=== PATIENT | female | born 1990 | race African-American/Black ===

== ENCOUNTER 2021-04-22 10:48 | Inpatient (IN) ==
[2021-04-22] MEDS ORDERED: OXYTOCIN/LR 20 UNIT/1,000 ML BAG IV ONE ×3 (10:50→14:29)
[2021-04-22] MEDS ORDERED: miSOPROStoL 200 MCG TABLET ONE (10:50)
[2021-04-22] MEDS ORDERED: TRANEXAMIC ACID 1,000 MG/10 ML VIAL ONE (10:50)
[2021-04-22] MEDS ORDERED: CARBOPROST TROMETHAMINE 250 MCG/ML AMP IM ONE (10:51)
[2021-04-22] MEDS ORDERED: METHYLERGONOVINE 0.2 MG/1 ML AMP ONE (10:51)
[2021-04-22] MEDS ORDERED: MEPERIDINE 50 MG/1 ML VIAL ONE (10:53)
[2021-04-22] MEDS ORDERED: LIDOCAINE 2% 20 ML VIAL ONE (10:53)
[2021-04-22] MEDS ORDERED: AMPICILLIN 2,000 MG VIAL ONE ×2 (10:54→11:04)
[2021-04-22] MEDS ORDERED: SODIUM CHLORIDE 0.9% 0 ML IV ONE (10:55)
[2021-04-22] MEDS ORDERED: ONDANSETRON 4 MG/2 ML VIAL IV PRN ×2 (10:57→11:44)
[2021-04-22] MEDS ORDERED: MEPERIDINE 50 MG/1 ML VIAL IV PRN (10:57)
[2021-04-22] MEDS ORDERED: LIDOCAINE 2% 20 ML VIAL MISC INJ ONE (10:59)
[2021-04-22] MEDS ORDERED: SODIUM CHLORIDE 0.9% 100 ML IV ONE (11:05)
[2021-04-22] MEDS ORDERED: AMPICILLIN INJ 2,000 MG in SODIUM CHLORIDE 0.9% 100 ML IV ONE (11:10)
[2021-04-22] MEDS: LACTATED RINGERS 1,000 ML IV SCH ×2 (11:12→18:49)
[2021-04-22] MEDS ORDERED: DIPH/TET/ACEL PERT BOOSTER VACCINE 0.5 ML VIAL IM ONE (11:44)
[2021-04-22] MEDS ORDERED: BISACODYL 10 MG SUPP RECTAL PRN (11:44)
[2021-04-22] MEDS ORDERED: BENZOCAINE 20%/MENTHOL 0.5% SPRAY 56 GM CAN TOP PRN (11:44)
[2021-04-22] MEDS ORDERED: LANOLIN 50% CREAM 0.3 OZ TUBE TOP PRN (11:44)
[2021-04-22] MEDS ORDERED: ACETAMINOPHEN 325 MG TABLET PO PRN (11:44)
[2021-04-22] MEDS ORDERED: WITCH HAZEL PADS 100/JAR TOP PRN (11:44)
[2021-04-22] MEDS ORDERED: RHO(D) IMMUNE GLOBULIN 300 MCG SYRINGE IM ONE (11:44)
[2021-04-22] MEDS ORDERED: MEASLES/MUMPS/RUBELLA VACCINE 0.5 ML VIAL SUBCUT ONE (11:44)
[2021-04-22] MEDS ORDERED: HYDROCORTISONE 2.5% RECTAL CREAM 30 GM TUBE TOP PRN (11:44)
[2021-04-22 11:46] LABS: Cord Arterial Blood HCO3 23.8 MMOL/L
[2021-04-22 11:48] LABS: Cord Venous Blood HCO3 21.3 MMOL/L; Cord Venous Blood PCO2 26.9 MMHG; Cord Venous Blood PO2 28.7 MMHG
[2021-04-22 12:21] LABS: Basophils % 0.1 % (0.0-0.8); Hematocrit 34.1 VOL% (35.7-47.0); Immature Granulocytes % 0.5 %; Immature Granulocytes Absolute 0.06 #; Lymphocytes # 0.9 10*3/uL (1.4-4.0); Lymphocytes % 7.8 % (21.3-54.2); Mean Corpuscular HGB Conc 32.3 GM/DL (32-36); Mean Corpuscular Volume 92.2 FL (87-102); Mean Platelet Volume 10.1 FL (9.6-12.0); Monocytes % 7.2 % (1.7-12.7); Neutrophils % 84.4 % (38.7-73.9); Platelet Count 187 T/CUMM (130-400); Red Cell Distribution Width 13.7 % (9.3-17.3); White Blood Count 10.9 T/CUMM (4-12)
[2021-04-22 12:30] LABS: Albumin 2.7 G/DL (3.4-5.0); Bilirubin,Total 0.4 MG/DL (0.2-1.0); Calcium 8.4 MG/DL (8.5-10.1); Osmolality,Calculated 275.5 MOS/KG (273-304); Potassium 3.2 MMOL/L (3.5-5.1); Total Protein 6.6 G/DL (6.4-8.2)
[2021-04-22] MEDS: IBUPROFEN 800 MG TABLET PO PRN ×2 (14:27→20:45)
[2021-04-22] MEDS: oxyCODONE/ACETAMINOPHEN 5-325 MG TABLET PO PRN (20:45)
[2021-04-22] MEDS: DOCUSATE SODIUM 100 MG CAPSULE PO SCH (20:45)
[2021-04-23] MEDS: oxyCODONE/ACETAMINOPHEN 5-325 MG TABLET PO PRN ×3 (03:58→19:48)
[2021-04-23 05:06] LABS: Basophils % 0.3 % (0.0-0.8); Eosinophils # 0.1 10*3/uL (0.0-0.87); Eosinophils % 0.4 % (0.00-10.9); Hematocrit 32.2 VOL% (35.7-47.0); Hemoglobin 10.7 GM/DL (12.0-16.0); Immature Granulocytes % 0.5 %; Immature Granulocytes Absolute 0.06 #; Lymphocytes # 2.5 10*3/uL (1.4-4.0); Lymphocytes % 21.1 % (21.3-54.2); Mean Corpuscular HGB Conc 33.2 GM/DL (32-36); Mean Platelet Volume 10.4 FL (9.6-12.0); Monocytes % 11.1 % (1.7-12.7); Neutrophils % 66.6 % (38.7-73.9); Platelet Count 198 T/CUMM (130-400); Red Cell Distribution Width 13.6 % (9.3-17.3); White Blood Count 11.6 T/CUMM (4-12)
[2021-04-23] MEDS: MULTIVITAMIN (PRENATAL) TABLET PO SCH (08:09)
[2021-04-23] MEDS: DOCUSATE SODIUM 100 MG CAPSULE PO SCH ×3 (08:09→22:09)
[2021-04-23] MEDS: IBUPROFEN 800 MG TABLET PO PRN ×2 (13:14→19:48)
[2021-04-24] MEDS: POTASSIUM CHLORIDE 20 MEQ TABLET PO PRN ×4 (01:08→07:19)
[2021-04-24] MEDS: IBUPROFEN 800 MG TABLET PO PRN (06:24)
[2021-04-24] MEDS: oxyCODONE/ACETAMINOPHEN 5-325 MG TABLET PO PRN (06:25)
[2021-04-24 08:38] VITALS: BP 121/83
[2021-04-24] MEDS: DOCUSATE SODIUM 100 MG CAPSULE PO SCH (09:15)
[2021-04-24] MEDS: MULTIVITAMIN (PRENATAL) TABLET PO SCH (09:16)
== END 2021-04-24 13:02 | disposition home or self-care (01) | DRG 807 ==
LOC: N.LDOUT 10:48 → N.LD 11:25 → N.OB 15:00
PROVIDERS: ADMIT Obstetrics & Gynecology; ATTEND Obstetrics & Gynecology